=== PATIENT | female | born 1990 | race Caucasian/White ===

== ENCOUNTER → 2020-10-15 | Outpatient (CLI) | payer OTHER ==
[2020-10-15 12:05] LABS: HEMOGLOBIN 12.2 gm/dl (12.3-15.3); RED BLOOD COUNT 4.24 M/UL (4.00-5.10); WHITE BLOOD COUNT 9.6 K/UL (4.5-11.0)
[2020-10-15 12:33] LABS: BUN/CREATININE RATIO 22 (0-10)
== END ==
LOC: LAB 10:13
PROVIDERS: Internal Medicine
DX: M35.9 Systemic involvement of connective tissue, unspecified (principal); R76.8 Other specified abnormal immunological findings in serum; M25.50 Pain in unspecified joint; D89.89 Other specified disorders involving the immune mechanism, not elsewhere classified; R76.0 Raised antibody titer; Z87.19 Personal history of other diseases of the digestive system
CPT/HCPCS: 36415; 80053; 84439; 84443; 85025

== ENCOUNTER → 2020-10-30 | Outpatient (CLI) | payer OTHER | LOC: HEART 5 09:38 | DX: M34.9 Systemic sclerosis, unspecified (principal); R93.89 Abnormal findings on diagnostic imaging of other specified body structures; R76.0 Raised antibody titer; R76.8 Other specified abnormal immunological findings in serum | CPT/HCPCS: 94010 ==

== ENCOUNTER → 2020-10-30 | Outpatient (CLI) | payer OTHER | LOC: KOH-I 10-26 15:30 | DX: R06.00 Dyspnea, unspecified (principal); R91.8 Other nonspecific abnormal finding of lung field | CPT/HCPCS: 71250 ==

== ENCOUNTER → 2021-02-20 | Outpatient (CLI) | payer OTHER | LOC: EMI 08:41 | DX: R55 Syncope and collapse (principal); G40.219 Localization-related (focal) (partial) symptomatic epilepsy and epileptic syndromes with complex partial seizures, intractable, without status epilepticus | CPT/HCPCS: 70553; A9577 ==